=== PATIENT | female | born 1965 | race Caucasian/White ===

== ENCOUNTER 2023-06-19 11:59 | Outpatient (OUT) | payer OTHER, SELFPAY ==
[2023-06-19 12:23] LABS: Basophils Absolute Auto 0.1 10^3/uL (0.0-0.1); Basophils Percent Auto 0.6 % (0.2-2.0); Eosinophils Absolute Auto 0.2 10^3/uL (0.0-0.7); Eosinophils Percent Auto 2.5 % (0.9-7.0); Hematocrit 38.6 % (36.0-48.0); Hemoglobin 12.5 g/dL (12.0-16.0); Immature Granulocytes Abs Auto 0.02 10^3/uL (0.00-0.03); Immature Granulocytes Pct Auto 0.2 % (0.0-0.5); Lymphocytes Absolute Auto 1.8 10^3/uL (1.2-3.8); Lymphocytes Percent Auto 21.8 % (20.5-60.0); Mean Corpuscular HGB Conc 32.4 g/dL (29.9-35.2); Mean Corpuscular Hemoglobin 29.1 pg (26.7-34.0); Mean Platelet Volume 9.1 fL (9.5-13.5); Monocytes Absolute Auto 0.7 10^3/uL (0.3-0.8); Monocytes Percent Auto 8.1 % (1.7-12.0); Neutrophils Absolute Auto 5.5 10^3/uL (1.4-6.5); Neutrophils Percent Auto 66.8 % (43.0-75.0); Platelet Count 281 10^3/uL (150-450); Red Blood Count 4.29 10^6/uL (4.20-5.40); Red Cell Distribution Width 13.1 % (11.0-15.0); White Blood Count 8.3 10^3/uL (4.0-11.0)
[2023-06-19 12:36] LABS: Estimated Average Glucose 117 mg/dL; Glycohemoglobin A1C 5.7 % (4.5-6.2)
[2023-06-19 13:02] LABS: Alanine Aminotransferase 35 U/L (14-59); Albumin Globulin Ratio 0.8; Albumin Level 4.2 g/dL (3.4-5.0); Alkaline Phosphatase 84 U/L (46-116); Anion Gap 13.4; Aspartate Amino Transferase 26 U/L (15-37); BUN Creatinine Ratio 23.2; Bilirubin Total 0.6 mg/dL (0.2-1.0); Carbon Dioxide 28.4 mmol/L (21.0-32.0); Chloride 103 mmol/L (98-107); Chol HDL Ratio 3.7; Cholesterol 182 mg/dL (<=200); Estimated GFR (African America >60 (>=60); Estimated GFR (Non-African Ame 58 (>=60); Free T3 2.68 pg/mL (2.18-3.98); Globulin 5.3 g/dL; Glucose 90 mg/dL (74-106); HDL Cholesterol 49 mg/dL (40-60); LDL Cholesterol Calculated 113.2 mg/dL; Potassium 3.8 mmol/L (3.5-5.1); Sodium 141 mmol/L (136-145); Thyroid Stimulating Hormone 8.596 uIU/mL (0.358-3.740); Total Protein 9.5 g/dL (6.4-8.2); Triglycerides 99 mg/dL (<=150); VLDL CHOLESTEROL 19.8 mg/dL
== END 2023-06-19 12:00 | disposition home or self-care (01) ==
LOC: LAB 12:01
PROVIDERS: PCP Family Medicine; Visit Provider Family Medicine
DX: Z00.00 Encounter for general adult medical examination without abnormal findings (principal)
CPT/HCPCS: 36415; 80053; 80061; 83036; 83525; 84436; 84443; 84481; 85025

== ENCOUNTER 2023-07-19 10:35 | Outpatient (OUT) | payer OTHER, SELFPAY ==
[2023-07-19 12:40] LABS: Free T4 1.19 ng/dL (0.76-1.46)
[2023-07-19 12:45] LABS: Thyroid Stimulating Hormone 1.386 uIU/mL (0.358-3.740)
== END 2023-07-19 10:36 | disposition home or self-care (01) ==
LOC: LAB 10:38
PROVIDERS: PCP Family Medicine; Visit Provider Family Medicine
DX: E05.90 Thyrotoxicosis, unspecified without thyrotoxic crisis or storm (principal)
CPT/HCPCS: 36415; 84439; 84443; 84481

== ENCOUNTER 2024-06-24 13:56 | Outpatient (OUT) | payer OTHER, SELFPAY ==
[2024-06-24 14:17] LABS: Basophils Absolute Auto 0.1 10^3/uL (0.0-0.1); Basophils Percent Auto 0.6 % (0.2-2.0); Eosinophils Absolute Auto 0.2 10^3/uL (0.0-0.7); Eosinophils Percent Auto 2.1 % (0.9-7.0); Hematocrit 42.5 % (36.0-48.0); Hemoglobin 13.7 g/dL (12.0-16.0); Immature Granulocytes Abs Auto 0.01 10^3/uL (0.00-0.03); Immature Granulocytes Pct Auto 0.1 % (0.0-0.5); Lymphocytes Absolute Auto 1.6 10^3/uL (1.2-3.8); Lymphocytes Percent Auto 19.1 % (20.5-60.0); Mean Corpuscular HGB Conc 32.2 g/dL (29.9-35.2); Mean Corpuscular Hemoglobin 28.6 pg (26.7-34.0); Mean Corpuscular Volume 88.7 fL (81.0-99.0); Mean Platelet Volume 9.1 fL (9.5-13.5); Monocytes Absolute Auto 0.5 10^3/uL (0.3-0.8); Monocytes Percent Auto 5.2 % (1.7-12.0); Neutrophils Absolute Auto 6.3 10^3/uL (1.4-6.5); Neutrophils Percent Auto 72.9 % (43.0-75.0); Platelet Count 292 10^3/uL (150-450); Red Blood Count 4.79 10^6/uL (4.20-5.40); Red Cell Distribution Width 12.5 % (11.0-15.0); White Blood Count 8.6 10^3/uL (4.0-11.0)
[2024-06-24 15:16] LABS: Estimated Average Glucose 114 mg/dL; Glycohemoglobin A1C 5.6 % (4.5-6.2)
[2024-06-24 15:27] LABS: Alanine Aminotransferase 42 U/L (14-59); Albumin Globulin Ratio 0.9; Alkaline Phosphatase 96 U/L (46-116); Anion Gap 14.3; Aspartate Amino Transferase 31 U/L (15-37); BUN Creatinine Ratio 13.8; Bilirubin Total 0.6 mg/dL (0.2-1.0); Calcium 9.4 mg/dL (8.5-10.1); Carbon Dioxide 27.6 mmol/L (21.0-32.0); Chloride 103 mmol/L (98-107); Chol HDL Ratio 3.7; Cholesterol 189 mg/dL (<=200); Estimated GFR (African America >60 (>=60); Estimated GFR (Non-African Ame >60 (>=60); Globulin 4.4 g/dL; Glucose 100 mg/dL (74-106); HDL Cholesterol 51 mg/dL (40-60); LDL Cholesterol Calculated 113.8 mg/dL; Potassium 3.9 mmol/L (3.5-5.1); Sodium 141 mmol/L (136-145); Thyroid Stimulating Hormone 2.092 uIU/mL (0.358-3.740); Total Protein 8.4 g/dL (6.4-8.2); Triglycerides 121 mg/dL (<=150); VLDL CHOLESTEROL 24.2 mg/dL
[2024-06-24 15:52] LABS: Free T4 1.23 ng/dL (0.76-1.46)
== END 2024-06-24 13:57 | disposition home or self-care (01) ==
LOC: LAB 13:57
PROVIDERS: PCP Family Medicine; Visit Provider Family Medicine
DX: Z00.00 Encounter for general adult medical examination without abnormal findings (principal)
CPT/HCPCS: 36415; 80053; 80061; 83036; 84439; 84443; 85025

== ENCOUNTER 2024-07-01 11:28 | Outpatient (OUT) | payer OTHER, SELFPAY ==
--- NOTE | 2024-07-01 11:30 | MM_ITS ---
Patient Name: YESENIA SANCHEZ MR#: [id number] : 1965 Exam Date: 07/01/2024 Ordering Doctor: DR Nate Hinson . RADIOLOGY REPORT PROCEDURE: MM TOMOSYNTHESIS SCREENING BI COMPARISON: MG MAMM SCREEN 3D SHAHANA CAD, 02/27/2021. MG MAMM SHAHANA SCRN W CAD DIG, 07/26/2016. INDICATIONS: Screening Calculator Name NCI Breast Cancer Risk Assessment Tool 5 Year Breast Cancer Risk 2.60% Lifetime Breast Cancer Risk 16.10% Personal Breast Cancer No Personal Ovarian Cancer No Treatments None Family Cancers Mother with breast cancer at age 68; Grandfather-maternal with non hodgkins lymphoma cancer at age 70. LOCATION: [facility] [place] BREAST COMPOSITION: The breasts are almost entirely fatty. FINDINGS: DIAGNOSTIC CATEGORY 1--NEGATIVE. RIGHT BREAST: No significant suspicious finding. No significant change has occurred. LEFT BREAST: No significant suspicious finding. No significant change has occurred. RECOMMENDATIONS: ROUTINE MAMMOGRAM AND CLINICAL EVALUATION IN 12 MONTHS. PLEASE NOTE: A NORMAL MAMMOGRAM DOES NOT EXCLUDE THE POSSIBILITY OF BREAST CANCER. A CLINICALLY SUSPICIOUS PALPABLE LUMP SHOULD BE BIOPSIED. Dictated by: Nestor Argueta M.D. on 07/02/2024 at 14:10 Approved by: Nestor Argueta M.D. on 07/02/2024 at 14:12
--- OUTSIDE RECORDS SUMMARY | 2024-07-01 11:43 | XMS_ITS | CCD ---
Author Organization [facility] Care Team Providers Care Shaker Repairer Name Role Phone DR AMELIA PLASCENCIA Admitting Unavailable DR AMELIA PLASCENCIA Attending Unavailable DR AMELIA PLASCENCIA Admitting Unavailable DR AMELIA PLASCENCIA Attending Unavailable DR AMELIA PLASCENCIA Primary Care Unavailable DR AMELIA PLASCENCIA Consulting Unavailable Problems Active Problems Problem Classification Problem Date Documented Da te Episodic/Chronic Thyroid disorders (4 sources) Hypothyroidism, unspecified; Translations: [HYPOTHYROIDISM UNSPECIFIED] Onset: 04-12-2021 Chronic Past or Other Problems Problem Classification Problem Date Documented Da te Episodic/Chronic Other liver diseases (1 source) Abnormal levels of other serum enzymes; Translations: [ABNORMAL LEVELS OTHER SERUM ENZYMES] Onset: 04-19-2021 Episodic Results Test Name Value Interpretation Reference Range Facil ity HEPATITIS PANEL, ACUTEon HBsAg Screen Negative Normal Negative [facility] Comment on above: Performed By: #### H EPACUT #### [facility] [address] [place] [address] Bridget Tawnya Hep A Ab, IgM Negative Normal Negative [facility] Comment on above: Performed By: #### H EPACUT #### [facility] [address] [id number] Bridget Tawnya Hep B Core Ab, IgM Negative Normal Negative [facility] Comment on above: Performed By: #### H EPACUT #### [facility] [address] [id number] Bridget Tawnya Hep C Virus Ab <0.1 Normal 0.0-0.9 The [facility] Comment on above: Result Comment: Nega tive: < 0.8 Indeterminate: 0.8 - 0.9 Positive: > 0.9 . The CDC recommends that a positive HCV antibody result be followed up with a HCV Nucleic Acid Amplification test (396706). Performed By: #### H EPACUT #### [facility] [address] [place], [place] [address] Bridget Bowling FREE T3on 04-12-2021 FREE T3 2.73 pg/mlL Critically low 2.77-5.[address] [facility] Comment on above: Performed By: #### F T3, TSH, T4 #### [facility] [address] [id number] Bridget Bowling T4on 04-12-2021 T4 [Mass/Vol] 7.00 ug/dL Normal 5.53-11.00 The [facility] Comment on above: Performed By: #### F T3, TSH, T4 #### [facility] [address] [address] Bridget Bowlign TSHon 04-12-2021 TSH 4.622 uIU/mL Normal 0.470-4.680 The [facility] Comment on above: Performed By: #### F T3, TSH, T4 #### [facility] [address] [address] Bridget Bowling TSH RANGE SEE BELOW Normal The [facility] Comment on above: Result Comment: <0.3 4 UIU/ml HYPERTHYROID 0.34-5.60 UIU/ml EUTHYROID >5.60 UIU/ml HYPOTHYROID Performed By: #### F T3, TSH, T4 #### [facility] [address] [id number] Bridget Bowling Encounters Encounter Date Encounter Type Care Provider Facility Start: 03-20-[address] AMELIA PLASCENCIA Facility :H1 Start: 04-12-2021 End: 04-13-[address] AMELIA PLASCENCIA Facility:H1 Payers Date Payer Category Payer Unknown [id number] .[id number] 1965 Unknown [id number] .[id number] Self-pay [id number] 1957 Unknown [id number] Summary Purpose Family History No Family History Records Found Advance Directives No Advanced Directives Records Found Additional Source Comments INFORMATION SOURCE (unrecogn ized section and content) DATE CREATED AUTHOR 03/22/2022 The [facility] FOR RECORDS PERTAINING TO PATIENTS WHO ARE OR HAVE BEEN ENROLLED IN A CHEMICAL DEPENDENCY/SUBSTANCEABUSE PROGRAM, SOME INFORMATION MAY BE OMITTED. This clinical summary was aggregated from multiple sources. Caution should be exercised in using it in the provision of clinical care. This summary normalizes information from multiple sources, and as a consequence, information in this document may materially change the coding, format and clinical context of patient data. In addition, data may be omitted in some cases. CLINICAL DECISIONS SHOULD BE BASED ON THE PRIMARY CLINICAL RECORDS. [facility] [employer] [facility]. provides no warranty or guarantee of the accuracy or completeness of information in this document.
== END 2024-07-01 11:29 | disposition home or self-care (01) ==
LOC: MAMMO 11:28
PROVIDERS: PCP Family Medicine; Visit Provider Family Medicine
DX: Z12.31 Encounter for screening mammogram for malignant neoplasm of breast (principal); Z80.3 Family history of malignant neoplasm of breast; Z80.7 Family history of other malignant neoplasms of lymphoid, hematopoietic and related tissues
CPT/HCPCS: 77063; 77067

== ENCOUNTER 2024-07-09 08:00 | Outpatient (OUT) | payer OTHER, SELFPAY ==
--- NOTE | 2024-07-09 | PCN_ITS ---
CARDIAC STRESS TEST Requesting Physician: Nate Hinson M.D. Procedure Date: 07/09/2024 PERFORMING PROVIDER: Damien Carrasquillo M.D. INDICATION: Chest pain. STRESS TEST PROTOCOL: Dakota treadmill stress test with perfusion imaging. Resting heart rate: 68 Max heart rate: 144 Peak maximal heart rate percentage: 87 Resting blood pressure: 140/88 Maximum blood pressure: 196/66 Exercise time: 4 minute 33 seconds Stage reached: 2 METS: 7 Reason for termination: Target heart rate achieved. Heart rate recovery: Normal Chronotropic response index: 0.79 Functional capacity: Fair Blood pressure response: Normal Espinal treadmill stress test: 4 ST changes: None Symptoms: Dyspnea which resolved prior to leaving room. Arrhythmias: None CONCLUSIONS: 1. Patient performed a treadmill stress test with nuclear myocardial perfusion imaging. 2. Patient exercised for 4 minutes and 33 seconds. She reached stage 2, METS 7. 3. There were no definite EKG changes meeting the criteria for ischemia. 4. Espinal treadmill score of 4, portending moderate risk for angiographically significant coronary artery disease. 5. Please refer to separately interpreted and reported nuclear myocardial perfusion imaging. MTDD
--- NOTE | 2024-07-09 | NM_ITS ---
Patient Name: YESENIA SANCHEZ MR#: [id number] : 1965 Exam Date: 07/09/2024 Ordering Doctor: DR Nate Hinson . RADIOLOGY REPORT PROCEDURE: NM ANNE PERF SPECT REST STR COMPARISON: None. INDICATIONS: ADULT WELLNESS TECHNIQUE: Exam Description: Stress/Rest one day protocol gated SPECT Rest Imagin.9 mCi Tc-99m Cardiolite IV on 07/09/2024 Stress Imaging 30.3 mCi Tc-99m Cardiolite IV on 07/09/2024 Exercise Protocol: Dakota Heart Rate (bpm): Rest: 68 Max: 144 PMHR: 87 Blood Pressure: Rest: 140/88 Max: 196/66 Exercise Time: Minutes: 4 Seconds: 33 Stage Reached: Stage: 2 Mets 7.0 Symptoms: Rest and peak stress ECG findings were pending and the exercise portion of the study was pending per attending physician Dr. HARKINS . For more details please see separate cardiac stress test report. FINDINGS: QUALITY OF STUDY: Excellent. PERFUSION DEFECT: None. LOCATION: N/A SIZE: N/A. SEVERITY: N/A. TYPE: N/A. WALL MOTION: Normal. LV SIZE: Normal. 85 mL. TID / TCD: None; 0.9 LVEF: Normal. Calculated EF 65%. SUMMARY: Myocardial perfusion imaging study is NORMAL. CONCLUSION: 1. Normal nuclear medicine myocardial perfusion scan. Dictated by: Nestor Argueta M.D. on 07/09/2024 at 15:55 Approved by: Nestor Argueta M.D. on 07/09/2024 at 15:57
--- OUTSIDE RECORDS SUMMARY | 2024-07-09 08:03 | XMS_ITS | CCD ---
Author Organization [employer] [facility] Care Team Providers Care Detective And Intelligence Analyst Name Role Phone DR AMELIA PLASCENCIA Admitting [...] PANEL, ACUTEon HBsAg Screen Negative Normal Negative [facility] Comment on above: Performed By: #### H EPACUT #### [facility] [address] [place] [address] Bridget Tawnya Hep A Ab, IgM Negative Normal Negative [facility] Comment on above: Performed By: #### H EPACUT #### [facility] [address] [id number] Bridget Tawnya Hep B Core Ab, IgM Negative Normal Negative [facility] Comment on above: Performed By: #### H EPACUT #### [facility] [address] [id number] Bridget Tawnya Hep C Virus Ab <0.1 Normal 0.0-0.[address] [facility] Comment on above: Result Comment: Nega tive: < 0.8 Indeterminate: 0.8 - 0.9 Positive: > 0.9 . The CDC recommends that a positive HCV antibody result be followed up with a HCV Nucleic Acid Amplification test (929125). Performed By: #### H EPACUT #### [facility] [address] [place], [place] [address] Bridget Bowling FREE T3on 04-12-2021 FREE T3 2.73 pg/mlL Critically low 2.77-5.27 The [facility] Comment on above: Performed By: #### F T3, TSH, T4 #### [facility] [address] [id number] Bridget Bowling T4on 04-12-2021 T4 [Mass/Vol] 7.00 ug/dL Normal 5.53-11.00 The [facility] Comment on above: Performed By: #### F T3, TSH, T4 #### [facility] [address] [address] Bridget Bowling TSHon 04-12-2021 TSH 4.622 uIU/mL Normal 0.470-4.680 [facility] Comment on above: Performed By: #### F T3, TSH, T4 #### [facility] [address] [address] Bridget Bowling TSH RANGE SEE BELOW Normal [facility] Comment on above: Result Comment: <0.3 4 UIU/ml HYPERTHYROID 0.34-5.60 UIU/ml EUTHYROID >5.60 UIU/ml HYPOTHYROID Performed By: #### F T3, TSH, T4 #### [facility] [address] [id number] Bridget Bowling Encounters Encounter Date Encounter Type Care Provider Facility Start: 03-20-[address] AMELIA PLASCENCIA Facility :H1 Start: 04-12-2021 End: 04-13-[address] AMELIA PLASCENCIA Facility:H1 Payers Date Payer Category Payer Unknown [id number] .16.84 [id number] 1965 Unknown [id number] .[id number] 1957 Self-pay [id number] 1957 Unknown [id number] Summary Purpose Family History No Family History [...] BE BASED ON THE PRIMARY CLINICAL RECORDS. [facility] [employer] [facility]. provides no warranty or guarantee of the accuracy or completeness of information in this document.
--- NOTE | 2024-07-09 10:40 | PC.NURSE ---
Nursing Note Cardiac Stress Test Reviewed: Medication, allergies and patient history reviewed. Stress Test: [ x] Patient tolerated stress test well. [ ] Patient unable to tolerate walking on treadmill. Switched to Lexiscan stress test. [x ] No chest pain noted per patient [ ] Chest pain that resolved prior to leaving stress lab. [ ] No dyspnea noted. [x ] Dyspnea that resolved prior to leaving stress lab. [ x] Patient left stress lab asymptomatic and hemodynamically stable. [ ] Patient taken to the Emergency Room due to non-resolving symptoms following stress test. [x ] Patient achieved target heart rate. [ ] Patient unable to achieve target heart rate. [ ] Aminophylline administered as reversal agent to Lexiscan (Regadenoson). [ ] Nitro administered. Nursing Comments:
== END 2024-07-09 08:01 | disposition home or self-care (01) ==
LOC: NM 08:00
PROVIDERS: PCP Family Medicine; Visit Provider Family Medicine
DX: R07.9 Chest pain, unspecified (principal)
CPT/HCPCS: 78452; 93017; A9500

== ENCOUNTER 2025-08-08 08:23 | Outpatient (OUT) | payer OTHER, SELFPAY ==
--- OUTSIDE RECORDS SUMMARY | 2025-08-08 08:29 | XMS_ITS | CCD ---
Author Organization [facility] Care Team Providers Care Product Safety Manager Name Role Phone DR AMELIA PLASCENCIA Admitting [...] PANEL, ACUTEon HBsAg Screen Negative Normal Negative [facility] Comment on above: Performed By: #### H EPACUT #### [facility] [address] [place] [address] Bridget Tawnya Hep A Ab, IgM Negative Normal Negative [facility] Comment on above: Performed By: #### H EPACUT #### [facility] [address] [id number] Bridget Tawnya Hep B Core Ab, IgM Negative Normal Negative [facility] Comment on above: Performed By: #### H EPACUT #### [facility] [address] [id number] Bridget Tawnya Hep C Virus Ab <0.1 Normal 0.0-0.9 The [facility] Comment on above: Result Comment: Nega tive: < 0.8 Indeterminate: 0.8 - 0.9 Positive: > 0.9 . The CDC recommends that a positive HCV antibody result be followed up with a HCV Nucleic Acid Amplification test (869788). Performed By: #### H EPACUT #### [facility] [address] [place], [place] [address] Bridget Bowling FREE T3on 04-12-2021 FREE T3 2.73 pg/mlL Critically low 2.77-5.27 The [facility] Comment on above: Performed By: #### F T3, TSH, T4 #### [facility] [address] [id number] Bridget Bowling T4on 04-12-2021 T4 [Mass/Vol] 7.00 ug/dL Normal 5.53-11.00 The [facility] Comment on above: Performed By: #### F T3, TSH, T4 #### [facility] [address] [address] Bridget Bowling TSHon 04-12-2021 TSH 4.622 uIU/mL Normal 0.470-4.680 The [facility] Comment on above: Performed By: #### F T3, TSH, T4 #### [facility] [address] [address] Bridget Bowling TSH RANGE SEE BELOW Normal [facility] Comment on above: Result Comment: <0.3 4 UIU/ml HYPERTHYROID 0.34-5.60 UIU/ml EUTHYROID >5.60 UIU/ml HYPOTHYROID Performed By: #### F T3, TSH, T4 #### [facility] [address] [id number] Bridget Bowling Encounters Encounter Date Encounter Type Care Provider Facility Start: 03-20-[address] AMELIA PLASCENCIA Facility :H1 Start: 04-12-2021 End: 04-13-[address] AMELIA PLASCENCIA Facility:H1 Payers Date Payer Category Payer Unknown [id number] .[id number] 1965 Unknown [id number] .[id number] 1957 Self-pay [id number] 1957 Unknown [id number] Summary Purpose Family History No Family History [...] BE BASED ON THE PRIMARY CLINICAL RECORDS. [facility]. provides no warranty or guarantee of the accuracy or completeness of information in this document.
[2025-08-08 09:14] LABS: Hematocrit 38.5 % (36.0-48.0); Hemoglobin 12.8 g/dL (12.0-16.0); Immature Granulocytes Abs Auto 0.01 10^3/uL (0.00-0.03); Immature Granulocytes Pct Auto 0.1 % (0.0-0.5); Lymphocytes Absolute Auto 3.2 10^3/uL (1.2-3.8); Mean Corpuscular HGB Conc 33.2 g/dL (29.9-35.2); Mean Corpuscular Hemoglobin 30.3 pg (26.7-34.0); Mean Corpuscular Volume 91.2 fL (81.0-99.0); Platelet Count 292 10^3/uL (150-450); Red Blood Count 4.22 10^6/uL (4.20-5.40); White Blood Count 9.9 10^3/uL (4.0-11.0)
[2025-08-08 09:37] LABS: Alanine Aminotransferase 26 U/L (14-59); Albumin Globulin Ratio 1.0; Albumin Level 4.1 g/dL (3.4-5.0); Alkaline Phosphatase 79 U/L (46-116); Anion Gap 13.3; Aspartate Amino Transferase 21 U/L (15-37); Blood Urea Nitrogen 11.0 mg/dL (7.0-18.0); Calcium 9.2 mg/dL (8.5-10.1); Carbon Dioxide 29.4 mmol/L (21.0-32.0); Chloride 105 mmol/L (98-107); Cholesterol 173 mg/dL (<=200); Estimated GFR (African America >60 (>=60 mL/min/1.73m^2); Estimated GFR (Non-African Ame >60 (>=60 mL/min/1.73m^2); Free T3 2.33 pg/mL (2.18-3.98); Globulin 4.3 g/dL; Glucose 86 mg/dL (74-106); HDL Cholesterol 51 mg/dL (40-60); Potassium 3.7 mmol/L (3.5-5.1); Sodium 144 mmol/L (136-145); Thyroid Stimulating Hormone 6.459 uIU/mL (0.358-3.740); Total Protein 8.4 g/dL (6.4-8.2); Triglycerides 124 mg/dL (<=150); VLDL CHOLESTEROL 24.8 mg/dL
== END 2025-08-08 08:24 | disposition home or self-care (01) ==
LOC: LAB 08:24
PROVIDERS: PCP Family Medicine; Visit Provider Family Medicine
DX: Z00.00 Encounter for general adult medical examination without abnormal findings (principal); Z12.11 Encounter for screening for malignant neoplasm of colon
CPT/HCPCS: 36415; 80053; 80061; 83036; 84436; 84443; 84481; 85025

== ENCOUNTER 2025-09-29 09:46 | Outpatient (OUT) | payer OTHER, SELFPAY ==
--- OUTSIDE RECORDS SUMMARY | 2025-09-29 09:50 | XMS_ITS | CCD ---
Author Organization [facility] Care Team Providers Care Alarm Signal Operator Name Role Phone DR AMELIA PLASCENCIA Admitting Unavailable DR AMELIA PLASCENCIA Attending Unavailable DR AMELIA PLASCENCIA Admitting Unavailable DR AMELIA PLASCENCIA Attending Unavailable DR AMELIA PLASCENCIA Primary Care Unavailable DR AMELIA PLASCENCIA Consulting Unavailable Problems Active Problems Problem ClassificationProblemDateDocumented DateEpisodic/ChronicThyroid disorders (4 sources)Hypothyroidism, unspecified; Translations: [HYPOTHYROIDISM UNSPECIFIED]Onset: 47-12-1455Ptrvqqm Past or Other Problems Problem ClassificationProblemDateDocumented DateEpisodic/ChronicOther liver diseases (1 source)Abnormal levels of other serum enzymes; Translations: [ABNORMAL LEVELS OTHER SERUM ENZYMES]Onset: 26-41-1762Fceyuhtw Results Test NameValueInterpretationReference RangeFacilityHEPATITIS PANEL, ACUTEon 25-12-8684FHyJw ScreenNegativeNormalNegativeSelect [facility], AvonComment on above:Performed By: #### HEPACUT #### [facility] [address] [place] [address] Bridget KarenHep A Ab, IgMNegativeNormalNegativeSelect [facility], AvonComment on above:Performed By: #### HEPACUT #### [facility] [address] [place] [address] Bridget KarenHep B Core Ab, IgMNegativeNormalNegativeSelect [facility], AvonComment on above:Performed By: #### HEPACUT #### [facility] [address] [place] [address] Bridget KarenHep C Virus Ab<0.5Fyaxhi4.0-0.9[facility] Hospitalment on above:Result Comment: Negative: < 0.8 Indeterminate: 0.8 - 0.9 Positive: > 0.9 . The CDC recommends that a positive HCV antibody result be followed up with a HCV Nucleic Acid Amplification test ([id number]).Performed By: #### HEPACUT #### [facility] [address] [place] [address] Bridget Perry T3on 13-71-0035ZHMW T32.73 pg/mlLCritically low2.77-5.27The [facility] CenterComment on above:Performed By: #### FT3, TSH, T4 #### [facility] [address] [place] [address] Bridget Lindsay4on 05-56-3422C7 [Mass/Vol]7.00 ug/dLNormal5.53-11.00The [facility] CenterComasp[facility] on above:Performed By: #### FT3, TSH, T4 #### [facility] [address] [place] [address] Bridget SimonHon 10-07-8507YHW4.622 uIU/mLNormal0.470-4.680The [facility] CenterComasp[facility] on above:Performed By: #### FT3, TSH, T4 #### [facility] [address] [place] [address] Bridget Simon RANGES BELOWNormalThe [facility] CenterComment on above:Result Comment: <0.34 UIU/ml HYPERTHYROID 0.34-5.60 UIU/ml EUTHYROID >5.60 UIU/ml HYPOTHYROIDPerformed By: #### FT3, TSH, T4 #### [facility] [address] [place] [address] Bridget Bowling Encounters Encounter DateEncounter TypeCare ProviderFacilityStart: 58-20-1556jxmqmuntfwDH AMELIA HOYFacility:Y3Kchkt: 04-12-2021 End: 62-92-1191gxnplhbjvzKC AMELIA HOYFacility:H1 Payers DatePayer CategoryPayerPolicy [id number] Summary Purpose Family History No Family History Records Found Advance Directives No Advanced Directives Records Found Additional Source Comments INFORMATION SOURCE (unrecogn ized section and content) DATE CREATED AUTHOR 03/22/2022 The [facility] FOR RECORDS PERTAINING TO PATIENTS WHO ARE [...] BE BASED ON THE PRIMARY CLINICAL RECORDS. [facility] [employer] [facility]. provides no warranty or guarantee of the accuracy or completeness of information in this document.
[2025-09-29 10:59] LABS: Free T3 2.32 pg/mL (2.18-3.98); Thyroid Stimulating Hormone 1.343 uIU/mL (0.358-3.740)
== END 2025-09-29 09:47 | disposition home or self-care (01) ==
PROVIDERS: PCP Family Medicine; Visit Provider Family Medicine
DX: E03.9 Hypothyroidism, unspecified (principal)
CPT/HCPCS: 36415; 84436; 84443; 84481